=== PATIENT | male | born 1975 | race Caucasian/White ===

== ENCOUNTER 2016-04-01 17:18 | Emergency (ER) | payer OTHER ==
[2016-04-01] MEDS ORDERED: ONDANSETRON 4 MG/2 ML VIAL ONE (17:47)
[2016-04-01] MEDS ORDERED: HYDROmorphONE/DILAUDID 1 MG/ML SYR ONE (17:48)
[2016-04-01] MEDS ORDERED: ONDANSETRON 4 MG/2 ML VIAL IVP ONE (18:00)
[2016-04-01] MEDS ORDERED: HYDROmorphONE/DILAUDID 1 MG/ML SYR IVP ONE (18:00)
[2016-04-01] MEDS ORDERED: NS 1,000 ML IV ONE (18:01)
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
[2016-04-01] MEDS ORDERED: OXYCODONE/APAP 5/325MG PREPACK#4 BTL TAKEHOME ONE (19:21)
[2016-04-01] MEDS ORDERED: CEPHALEXIN 500MG PREPACK#4 BTL TAKEHOME ONE (19:21)
[2016-04-01 20:10] VITALS: BP 128/78; PULSE 70; RESP 14; TEMP 97.9; O2SAT 94
--- NOTE | 2016-04-01 20:13 | DX ---
Right Hand, Three Views April 01, 2016 at 1800 Hours Indication: Trauma. Pain. Technique: AP, oblique, and lateral views. Comparison: None. Findings: The little finger is dislocated at the proximal interphalangeal joint level. The middle and distal phalanx are dislocated posteriorly and retracted at least one-third of the bone width relativ e to the proximal phalanx. The proximal phalanx appears to be exposed to the atmosphere, indicating a n open injury. No fracture fragment. A dynamic screw traverses the navicular bone. Navicular bone is completely healed. A 4 x 1.5 mm radio paque foreign body projects in the region of the thenar eminence. Impression: 1. Dislocated fifth finger at the PIP joint. 2. Open injury with proximal phalanx exposed to the atmosphere. No chip fracture. 3. Small age-indeterminant foreign body in the thenar eminence.
== END 2016-04-01 20:06 | disposition home or self-care (01) ==
PROC: 0RSWXZZ Reposition Right Finger Phalangeal Joint, External Approach (ICD-10-PCS; principal; 2016-04-01)
PROC: 0HQFXZZ Repair Right Hand Skin, External Approach (ICD-10-PCS; 2016-04-01)
DX: S63.286A Dislocation of proximal interphalangeal joint of right little finger, initial encounter (principal); S61.216A Laceration without foreign body of right little finger without damage to nail, initial encounter; V28.0XXA Motorcycle driver injured in noncollision transport accident in nontraffic accident, initial encounter; Y99.8 Other external cause status; Y93.89 Activity, other specified
CPT/HCPCS: 96365; J0690; J1170; J2405

== ENCOUNTER → 2017-01-18 | Outpatient (CLI) | payer OTHER | LOC: FIMAGING 10:51 | PROVIDERS: ATTEND Physician Assistant | DX: R05 Cough (principal) ==